=== PATIENT | male | born 1950 | race Caucasian/White ===

== ENCOUNTER 2019-05-11 04:43 | Inpatient (IN) | payer MEDICARE, BC ==
[2019-05-11 05:13] LABS: #Eosinphils 0.2 thou/uL (0.0-0.7); #Lymphocytes 2.3 thou/uL (1.20-3.40); #Monocytes 0.6 thou/uL (0.11-0.59); #Neutrophils 3.4 thou/uL (1.40-6.50); %Basophils 0.7 % (0.0-1.0); %Eosinophils 2.5 % (0.0-10.0); %Lymphocytes 35.4 % (21.0-51.0); %Monocytes 8.5 % (0.0-10.0); %Neutrophils 52.9 % (42.0-75.0); Hemoglobin 16.5 g/dL (14.0-18.0); Mean Corpuscular HGB CONC 33.8 g/dL (32.0-36.0); Mean Corpuscular Hemoglobin 29.9 pg (27.0-31.0); Mean Corpuscular Volume 88.5 fL (78.0-98.0); Mean Platelet Volume 7.3 fL (7.4-10.4); Platelet Count 166 thou/uL (130-400); RBC Distribution Width 12.7 % (11.5-14.5); White Blood Cell (WBC) Count 6.5 thou/uL (4.8-10.8)
[2019-05-11 05:18] LABS: INR-International Normal Ratio 0.9; PTT 32.6 SEC (22.9-36.1); Prothrombin Time 12.6 SEC (12.0-14.7)
[2019-05-11 05:22] LABS: ALT (SGPT) 22 U/L (8-55); AST (SGOT) 22 U/L (5-34); Albumin 4.2 g/dL (3.4-4.8); Alkaline Phosphatase 44 U/L (40-110); Anion Gap 16 mmol/L (10-20); BUN (Urea Nitrogen) 20 mg/dL (8.4-25.7); Bilirubin, Total 0.9 mg/dL (0.2-1.2); CK (CPK) 134 U/L (30-200); Calc. Creatinine Clearance 0 mL/min (70-130); Calcium 9.4 mg/dL (7.8-10.44); Carbon Dioxide 22 mmol/L (23-31); Chloride 105 mmol/L (98-107); Estimated GFR-MDRD 69; Globulin 2.4 g/dL (2.4-3.5); Glucose 125 mg/dL (80-115); Lipase 23 U/L (8-78); Potassium 4.2 mmol/L (3.5-5.1); Protein, Total 6.6 g/dL (5.8-8.1); Sodium 139 mmol/L (136-145)
[2019-05-11 06:18] LABS: CKMB 13.7 ng/mL (0-6.6)
[2019-05-11] MEDS ORDERED: Albumin 5% 0 ML ONE (06:21)
[2019-05-11] MEDS ORDERED: Heparin 10,000 UNITS/1 ML VIAL 30,000 UNITS in Sodium Chloride 0.9% 1,000 ML FS SCH (06:30)
[2019-05-11] MEDS ORDERED: Dexmedetomidine 200 MCG/2 ML VIAL ONE (06:44)
[2019-05-11] MEDS ORDERED: Vecuronium 10 MG VIAL ONE ×2 (06:44→10:21)
[2019-05-11] MEDS ORDERED: Midazolam HCl 5 mg/5 ml Vial ONE (06:44)
[2019-05-11] MEDS ORDERED: Fentanyl 250 MCG/5 ML VIAL ONE (06:44)
--- NOTE | 2019-05-11 08:10 | RAD ---
Chest AP view INDICATION: STEMI alert; chest pain COMPARISON: None FINDINGS: Lungs:The lungs are clear Cardiac silhouette:There is mild cardiomegaly. There is a 6 cm partially circumscribed oval masslike prominence near the region of the descending thoracic aorta suspicious for aneurysmal dilatation of the descending thoracic aorta or left main pulmonary artery. Pulmonary vasculature:Normal Pleural spaces:No pleural effusion or pneumothorax is demonstrated. Upper abdomen:No abnormality seen. Osseous structures: No acute osseous abnormality. Additional findings:None. IMPRESSION: 1. A 6 cm masslike prominence seen in the left superhilar region. Differential considerations include an aneurysmal dilatation of the descending thoracic aorta, left main pulmonary artery or a middle mediastinal mass or lymphadenopathy. Recommend consideration for a CTA of the thorax utilizing IV con trast for additional characterization. 2. Findings called to Dr. Campos at 8:00 AM on May 11, 2019.
[2019-05-11] MEDS ORDERED: Insulin Regular 300 UNITS/3 ML VIAL ONE (08:41)
[2019-05-11] MEDS ORDERED: Glycopyrrolate 0.2 MG/ML 5 ML SYRINGE ONE (10:21)
[2019-05-11] MEDS ORDERED: PROPOFOL 200 MG/20 ML VIAL ONE (10:21)
[2019-05-11] MEDS ORDERED: Lidocaine 1% PF 5 ML VIAL ONE (10:21)
[2019-05-11] MEDS ORDERED: Ondansetron PF 4 MG/2 ML Vial ONE (10:21)
--- NOTE | 2019-05-11 10:48 | HP ---
REASON FOR ADMISSION: Acute inferior myocardial infarction. HISTORY OF PRESENT ILLNESS: Mr. Rickey Coley is a 69-year-old gentleman. He started having chest pain yesterday, retrosternal. It would come and go and lasted for about 15 minutes at a time. Early this morning, the pain worsened, and he went to an [facility] freestanding emergency room. The initial EKG was suspicious, but not diagnostic of an inferior MO with less than a millimeter ST elevation in two leads in the inferior wall. He was sent urgently to the [facility]. The EKG on arrival here did show some additional ST elevation, and a STEMI alert was called. The patient had been otherwise doing well. He was on a beta schuyler and an MICHAEL inhibitor for blood pressure. Also taking aspirin regularly. No recent history of smoking, stopped in the . No alcohol or tobacco abuse. No drug abuse. ALLERGIES: NONE KNOWN AND NOT ALLERGIC TO IODINE. SOCIAL HISTORY: As outlined above. He is . REVIEW OF SYSTEMS: CONSTITUTIONAL: He otherwise has been relatively healthy. VISION: No changes. HEARING: No changes. PULMONARY: No cough or wheezing. GASTROINTESTINAL: No nausea, vomiting, or diarrhea. SKIN: No rashes. NEUROLOGIC: No unilateral weakness or numbness. PSYCHIATRIC: No unusual depression or anxiety. CARDIAC: As above. PHYSICAL EXAMINATION: GENERAL: It was a relatively healthy-appearing 69-year-old gentleman, continuing with chest pain. He said it was variable. Sometimes it was 1 or 2/10, sometimes it was up to 7/10. It seemed to be coming and going. Initially in the emergency room, it was relatively mild. VITAL SIGNS: The blood pressure was high. Please see the nurse's notes and the emergency room notes. In the [facility] ER, the systolic was to 190, it is much lower at the [place] [facility]. Please see the nurses notes and documentation of vital signs. Pulse was in the 60s. HEENT: Eyes, sclerae nonicteric. Mouth, mucous membranes moist. NECK: Supple. No lymphadenopathy. LUNGS: Clear. CARDIAC: Normal S1, normal S2. There is no murmur, rub, or gallop. ABDOMEN: Soft and nontender. No hepatosplenomegaly. EXTREMITIES: Warm and dry. No clubbing or cyanosis. No edema. Good peripheral pulses. DIAGNOSTIC DATA: EKG as outlined above. The troponin level came back later at 0.254. The hospital course so far, after informed consent was obtained, we discussed the risk of stroke, heart attack, iodine allergy, loss of blood supply to leg or kidney, emergency bypass surgery, discussed need that the indication for proceeding to the medical laboratory technician is an acute ST-elevation MO acute and aggressive therapy in the medical laboratory technician as opposed to noninterventional therapy. He understood and wished to proceed. In the medical laboratory technician, we found that he had severe 3-vessel coronary artery disease, recently occluded distal right coronary artery, which was successfully ballooned, and after restoring of flow, he has been sent to the surgical team for urgent coronary artery bypass grafting. CONCLUSION: 1. Acute inferior myocardial infarction, treated with balloon angioplasty to restore blood flow. 2. Severe three-vessel coronary artery disease. 3. Ejection fraction 40%. 4. Hypertension in the past. Job ID: [id number]
[2019-05-11] MEDS ORDERED: Iopamidol 370 76% 100 ML VIAL ONE (10:52)
[2019-05-11] MEDS ORDERED: Iopamidol 370 76% 50 ML VIAL FS ONE (10:52)
[2019-05-11] MEDS ORDERED: Lidocaine 2% PF 5 ML VIAL ONE (11:26)
[2019-05-11] MEDS ORDERED: Magnesium Sulfate 1 GM/2 ML VIAL ONE (11:26)
[2019-05-11] MEDS ORDERED: Aminocaproic Acid 5 GM/20 ML VIAL ONE (11:26)
[2019-05-11] MEDS ORDERED: Heparin 5,000 UNITS/ML VIAL ONE (11:26)
[2019-05-11] MEDS ORDERED: Nitroglycerin 50 MG/250 ML BOT ONE (11:26)
[2019-05-11] MEDS ORDERED: Protamine Sulfate 250 MG/25 ML VIAL ONE (11:26)
[2019-05-11] MEDS ORDERED: Sodium Bicarb 50 MEQ/50 ML Abboject 8.4% SYRINGE ONE (11:26)
[2019-05-11] MEDS ORDERED: Thrombin 5000 UNITS/5 ML VIAL ONE (11:26)
[2019-05-11] MEDS ORDERED: Cardioplegic Soln 1,000 ML BAG ONE (11:26)
[2019-05-11] MEDS ORDERED: Calcium Chloride 1 GM/10 ML Abboject SYRINGE ONE (11:26)
[2019-05-11] MEDS ORDERED: Heparin 30,000 units/30 ml VIAL ONE (11:26)
[2019-05-11] MEDS ORDERED: Papaverine 60 MG/2 ML VIAL ONE (11:26)
[2019-05-11] MEDS ORDERED: Potassium Chloride 60 MEQ/30 ML VIAL ONE (11:26)
[2019-05-11] MEDS ORDERED: Albumin 5% 250 ML ONE ×2 (11:45→13:39)
[2019-05-11] MEDS ORDERED: Nitroglycerin 50 MG/250 ML BOT 250 ML ONE (11:50)
[2019-05-11 12:10] VITALS: BMI 28.2
[2019-05-11] MEDS ORDERED: hydrALAZINE 20 MG/ML VIAL SLOW IVP PRN (12:11)
[2019-05-11] MEDS ORDERED: Hetastarch 6% 500 ML 500 ML IVPB PRN (12:11)
[2019-05-11] MEDS ORDERED: Acetaminophen 325 MG TAB PO PRN (12:11)
[2019-05-11] MEDS ORDERED: Potassium Chloride 20 MEQ/100 ML PREMIX BAG IVPB PRN (12:11)
[2019-05-11] MEDS ORDERED: Post-Op Insulin Drip Protocol IVPB ONE (12:11)
[2019-05-11] MEDS ORDERED: Guaifenesin DM 100-10/5 ML UDCUP PO PRN (12:11)
[2019-05-11] MEDS ORDERED: Promethazine HCl 25 MG/ML VIAL IM PRN (12:11)
[2019-05-11] MEDS ORDERED: Bisacodyl 10 MG SUPP PR PRN (12:11)
[2019-05-11] MEDS ORDERED: DOPamine 400 MG/D5W 250 ML 250 ML IVPB PRN (12:11)
[2019-05-11] MEDS ORDERED: Mag-Al 1200 mg/1200 mg/30 ML UDCUP PO PRN (12:11)
[2019-05-11] MEDS ORDERED: Morphine 2 MG/ML SYRINGE SLOW IVP PRN (12:11)
[2019-05-11] MEDS ORDERED: niCARdipine 25 MG in Sodium Chloride 0.9% 250 ML 250 ML IVPB PRN (12:11)
[2019-05-11] MEDS ORDERED: Norepinephrine 8 MG/0.9% NS 250 ML IVPB PRN (12:11)
[2019-05-11] MEDS ORDERED: Bisacodyl 5 MG TAB PO PRN (12:11)
[2019-05-11] MEDS ORDERED: Nitroglycerin 50 MG/250 ML BOT 250 ML IVPB PRN (12:11)
[2019-05-11] MEDS ORDERED: HYDROcodone/Acetaminophen 5/325 mg Tablet PO PRN (12:11)
[2019-05-11] MEDS ORDERED: Magnesium 2 GM/50 ML 2 GM in Premix Bag 1 BAG IVPB SCH (12:15)
--- NOTE | 2019-05-11 12:20 | RAD ---
Chest one view HISTORY: Heart surgery. COMPARISON: 05/11/2019. Earlier exam on the same date. FINDINGS: Cardiac silhouette is magnified by projection. Pulmonary vasculature are unremarkable. Medi astinum is midline with new sternotomy wires. Tip of a right subclavian central venous catheter overlies the cavoatrial junction. Rounded masslike density at the left suprahilar level is favored to represent aneurysmal dilatation o f the pulmonary artery. Right hemidiaphragm remains slightly elevated. No evidence of pneumothorax. IMPRESSION: Interval postoperative changes mediastinum. Right subclavian central venous catheter in good radiographic position.
[2019-05-11 12:29] LABS: Hemoglobin 13.3 g/dL (14.0-18.0); Mean Corpuscular HGB CONC 33.7 g/dL (32.0-36.0); Mean Corpuscular Hemoglobin 30.4 pg (27.0-31.0); Mean Corpuscular Volume 90.1 fL (78.0-98.0); Mean Platelet Volume 7.7 fL (7.4-10.4); Platelet Count 136 thou/uL (130-400); RBC Distribution Width 12.7 % (11.5-14.5); Red Blood Cell (RBC) Count 4.37 mill/uL (4.70-6.10); White Blood Cell (WBC) Count 21.3 thou/uL (4.8-10.8)
[2019-05-11] MEDS ORDERED: Insulin Regular 300 UNITS/3 ML VIAL SC PRN (12:31)
[2019-05-11] MEDS ORDERED: Dextrose 50% Abboject 50 ML SYRINGE SLOW IVP PRN (12:31)
[2019-05-11] MEDS ORDERED: HUMULIN R 100 UNITS in Sodium Chloride 0.9% 100 ML IVPB SCH (12:31)
[2019-05-11] MEDS ORDERED: Dextrose 5% in Water 1,000 ML IV PRN (12:31)
[2019-05-11 12:32] LABS: INR-International Normal Ratio 1.3; PTT 31.2 SEC (22.9-36.1)
[2019-05-11 12:42] LABS: Band 16 % (5-11); Lymphocytes 6 % (21-51); MDiff Complete? YES; Metamyelocyte 3 % (0-0); Monocytes 4 % (0-10); Myelocyte 1 % (0-0); Neutrophil 69 % (42-75); Platelet Morphology Comment Appears Adequate; Polychromasia SLIGHT = 2-3 cells (100X) (0-2/hpf); Reactive Lymphocytes 1 % (0-10)
[2019-05-11] MEDS ORDERED: Norepinephrine 8 MG in Dextrose 5% in Water 242 ML IVPB PRN (12:50)
[2019-05-11 12:52] LABS: Anion Gap 11 mmol/L (10-20); BUN (Urea Nitrogen) 14 mg/dL (8.4-25.7); Calc. Creatinine Clearance 128 mL/min (70-130); Carbon Dioxide 22 mmol/L (23-31); Chloride 111 mmol/L (98-107); Estimated GFR-MDRD Greater than 90; Glucose 118 mg/dL (80-115); Potassium 4.2 mmol/L (3.5-5.1); Sodium 140 mmol/L (136-145)
[2019-05-11] MEDS: CEFAZOLIN 2 GM in Premix Bag 1 BAG IVPB SCH ×2 (13:13→21:04)
[2019-05-11] MEDS: Ketorolac Tromethamine 30 MG/ML VIAL IVP SCH ×3 (13:14→23:12)
[2019-05-11] MEDS: Sodium Chloride 0.9% 1,000 ML IV SCH ×2 (13:16→21:13)
[2019-05-11] MEDS: Fentanyl 100 MCG/2 ML VIAL SLOW IVP PRN ×3 (13:36→19:29)
--- NOTE | 2019-05-11 15:06 | OP ---
DATE OF PROCEDURE: 05/11/2019 PREOPERATIVE DIAGNOSES: Coronary artery disease, acute inferior myocardial infarction. PROCEDURE PERFORMED: Coronary artery bypass graft x4, left internal mammary artery to a 2-mm left anterior descending artery with plaque, saphenous vein to 1.25 to 1.5 mm diagonal, to a 2.0 to 2.5 mm ramus just as it became intramyocardial, and to a 1 mm posterior descending artery. PRACTICE ARCHITECT: Seth Nair MD TRANSFUSION: None. DESCRIPTION OF PROCEDURE: After adequate anesthesia had been obtained, the patient was prepped and draped. An incision was made for median sternotomy while Dr. Nair did an endovascular vein harvest of the left greater saphenous vein. After opening the sternum, a left internal mammary artery was harvested without entering the pleura. The patient was heparinized. The mammary divided distally and treated with papaverine. Aorta was cannulated above the pericardial reflection and the right atrium was cannulated and cardiopulmonary bypass was begun. Vessels were inspected for grafting. The cross-clamp was applied and a liter of cold blood cardioplegia was given. The four distal anastomosis were completed. The distal right coronary artery and the posterior lateral branches after the takeoff the PDA were all widely exposed and were all poor quality vessels. Partial occluding clamp was placed and the ramus and the PDA vein grafts were anastomosed to the aortic root. The diagonal vein graft was anastomosed to the side of the ramus graft about 2 cm from the aortic root. Following this, the patient was weaned from cardiopulmonary bypass. Cannula was removed and protamine was given systemically. The aortic cannulation site required a vein pledgetted Prolene suture for hemostasis. Obtaining good hemostasis, two mediastinal drains were placed and the sternum was then reapproximated with #7 interrupted wire using vancomycin paste on the sternal edges, platelet rich blood and platelet poor plasma. Subcutaneous tissue and skin were closed in layers and the patient was to be taken to the ICU in guarded condition. Job ID: [id number]
[2019-05-11 18:15] LABS: Hemoglobin 13.9 g/dL (14.0-18.0)
[2019-05-11 18:44] LABS: Potassium 4.2 mmol/L (3.5-5.1)
[2019-05-11] MEDS: Simvastatin 40 MG TAB PO SCH (21:04)
[2019-05-11] MEDS: Famotidine/PF 20 mg/2ml Vial SLOW IVP SCH (21:04)
[2019-05-11] MEDS: HYDROcodone/Acetaminophen 5/325 mg Tablet PO PRN (21:05)
[2019-05-11] MEDS: Ondansetron PF 4 MG/2 ML Vial IVP PRN (21:13)
[2019-05-12] MEDS: Fentanyl 100 MCG/2 ML VIAL SLOW IVP PRN ×2 (00:50→10:02)
[2019-05-12] MEDS: HYDROcodone/Acetaminophen 5/325 mg Tablet PO PRN ×2 (04:00→20:15)
[2019-05-12 04:20] LABS: #Monocytes 1.4 thou/uL (0.11-0.59); #Neutrophils 12.5 thou/uL (1.40-6.50); %Eosinophils 0.2 % (0.0-10.0); %Lymphocytes 6.8 % (21.0-51.0); %Monocytes 9.6 % (0.0-10.0); %Neutrophils 83.4 % (42.0-75.0); Hemoglobin 12.3 g/dL (14.0-18.0); Mean Corpuscular Hemoglobin 30.5 pg (27.0-31.0); Mean Corpuscular Volume 89.9 fL (78.0-98.0); Mean Platelet Volume 7.4 fL (7.4-10.4); Platelet Count 139 thou/uL (130-400); RBC Distribution Width 12.9 % (11.5-14.5); Red Blood Cell (RBC) Count 4.03 mill/uL (4.70-6.10)
[2019-05-12 04:38] LABS: Anion Gap 11 mmol/L (10-20); BUN (Urea Nitrogen) 14 mg/dL (8.4-25.7); Calc. Creatinine Clearance 121 mL/min (70-130); Calcium 7.5 mg/dL (7.8-10.44); Carbon Dioxide 21 mmol/L (23-31); Chloride 110 mmol/L (98-107); Estimated GFR-MDRD Greater than 90; Glucose 138 mg/dL (80-115); Potassium 4.3 mmol/L (3.5-5.1); Sodium 138 mmol/L (136-145)
[2019-05-12] MEDS: Ketorolac Tromethamine 30 MG/ML VIAL IVP SCH ×3 (05:32→17:46)
[2019-05-12] MEDS: CEFAZOLIN 2 GM in Premix Bag 1 BAG IVPB SCH (05:33)
[2019-05-12] MEDS: Famotidine/PF 20 mg/2ml Vial SLOW IVP SCH ×2 (08:22→20:15)
[2019-05-12] MEDS ORDERED: Aspirin 325 MG TAB PO SCH (09:00)
--- NOTE | 2019-05-12 09:01 | RAD ---
CHEST ONE VIEW: INDICATIONS: History of status post open heart surgery. COMPARISON: Prior exam dated 05/11/2019 at 11:26 a.m. FINDINGS: Right subclavian central venous catheter, midline sternotomy changes are stable. Rounded mass-like op acity seen within the left suprahilar region is stable. There are areas of subsegmental volume loss i nvolving both lower lobes. No pneumothorax is evident. No acute osseous abnormality is evident. IMPRESSION: 1. Bibasilar atelectasis is likely related to depth of inspiration. 2. Persistent mass-like opacity of the left suprahilar region. 3. Stable right subclavian central venous catheter and post coronary artery bypass grafting change. POS: CET
[2019-05-12 10:28] LABS: Troponin I 7.473 ng/mL (< 0.028)
--- NOTE | 2019-05-12 13:45 | PRG ---
DATE OF SERVICE: 05/12/2019 SUBJECTIVE: Mr. Coley is doing great. The arterial sheath is out, feeling well. He is going to get up out of bed soon. OBJECTIVE: VITAL SIGNS: Blood pressure 106/53, pulse 80 and regular. LUNGS: Clear. CARDIAC: Normal S1, normal S2. ASSESSMENT: Status post myocardial infarction and an emergency balloon angioplasty and the bypass surgery. PLAN: Continue the current medical regimen. We will start Plavix one a day tomorrow. Job ID: [id number]
[2019-05-12] MEDS: Ondansetron PF 4 MG/2 ML Vial IVP PRN (13:52)
[2019-05-12] MEDS: Simvastatin 40 MG TAB PO SCH (20:15)
[2019-05-13] MEDS: Ketorolac Tromethamine 30 MG/ML VIAL IVP SCH ×2 (00:05→05:43)
[2019-05-13 05:17] LABS: Anion Gap 7 mmol/L (10-20); BUN (Urea Nitrogen) 16 mg/dL (8.4-25.7); Calc. Creatinine Clearance 117 mL/min (70-130); Calcium 8.1 mg/dL (7.8-10.44); Carbon Dioxide 28 mmol/L (23-31); Chloride 106 mmol/L (98-107); Estimated GFR-MDRD 90; Glucose 111 mg/dL (80-115); Potassium 4.3 mmol/L (3.5-5.1); Sodium 137 mmol/L (136-145)
[2019-05-13 05:41] LABS: #Eosinphils 0.1 thou/uL (0.0-0.7); #Lymphocytes 1.7 thou/uL (1.20-3.40); #Monocytes 1.1 thou/uL (0.11-0.59); #Neutrophils 8.6 thou/uL (1.40-6.50); %Basophils 0.2 % (0.0-1.0); %Eosinophils 0.8 % (0.0-10.0); %Lymphocytes 14.6 % (21.0-51.0); %Monocytes 9.1 % (0.0-10.0); %Neutrophils 75.3 % (42.0-75.0); Hemoglobin 11.5 g/dL (14.0-18.0); Mean Corpuscular HGB CONC 33.4 g/dL (32.0-36.0); Mean Corpuscular Hemoglobin 30.9 pg (27.0-31.0); Mean Corpuscular Volume 92.4 fL (78.0-98.0); Mean Platelet Volume 7.4 fL (7.4-10.4); Platelet Count 112 thou/uL (130-400); Platelet Morphology Comment Appears Decreased; RBC Distribution Width 12.9 % (11.5-14.5); Red Blood Cell (RBC) Count 3.71 mill/uL (4.70-6.10); White Blood Cell (WBC) Count 11.5 thou/uL (4.8-10.8)
[2019-05-13] MEDS ORDERED: Bisacodyl 10 MG SUPP PR PRN (06:14)
[2019-05-13] MEDS ORDERED: Mineral Oil ENEMA PR PRN (06:14)
[2019-05-13] MEDS ORDERED: Ondansetron PF 4 MG/2 ML Vial IVP PRN (06:14)
[2019-05-13] MEDS ORDERED: Bisacodyl 5 MG TAB PO PRN (06:14)
[2019-05-13] MEDS ORDERED: Mag-Al 1200 mg/1200 mg/30 ML UDCUP PO PRN (06:14)
[2019-05-13] MEDS ORDERED: HYDROcodone/Acetaminophen 5/325 mg Tablet PO PRN (06:14)
[2019-05-13] MEDS ORDERED: Guaifenesin DM 100-10/5 ML UDCUP PO PRN (06:14)
[2019-05-13] MEDS ORDERED: Acetaminophen 325 MG TAB PO PRN (06:14)
[2019-05-13] MEDS ORDERED: Nitroglycerin 0.4 MG TAB (25 Tab Bottle) SL PRN (06:14)
[2019-05-13] MEDS ORDERED: Fentanyl 100 MCG/2 ML VIAL SLOW IVP PRN ×2 (06:14)
[2019-05-13] MEDS: Clopidogrel Bisulfate 75 MG TAB PO SCH (07:43)
[2019-05-13] MEDS: Furosemide 40 MG TAB PO SCH (07:43)
[2019-05-13] MEDS: Potassium Chloride 10 MEQ TAB PO SCH (07:43)
[2019-05-13] MEDS: Famotidine 20 MG TAB PO SCH ×2 (07:43→20:31)
[2019-05-13] MEDS: Polyethylene Glycol 3350 17 GM Packet PO SCH (07:44)
--- NOTE | 2019-05-13 07:50 | RAD ---
Frontal radiograph chest: 05/13/2019 COMPARISON: 05/12/2019 HISTORY: Evaluate chest following open heart surgery FINDINGS: There is a rounded soft tissue density in the AP window region suggesting a dilated pulmona ry artery on the basis of pulmonary arterial hypertension. However, a soft tissue mass in the left hilar region cannot be excluded. There is a right-sided vascular catheter with distal tip overlying t he region of the cavoatrial junction. Midline sternotomy wires are present. Mediastinal drainage catheters suspected. There is no pneumothorax, pleural fluid, focal consolidation, or alveolar edema. IMPRESSION: Postoperative changes as detailed above. Stable rounded mass density in the left hilar re gion for which follow-up CT advised.
[2019-05-13] MEDS ORDERED: Aspirin 81 mg Enteric Coated Tablet PO SCH ×2 (09:00)
[2019-05-13] MEDS: Aspirin 81 mg Enteric Coated Tablet PO SCH (10:40)
[2019-05-13] MEDS: HYDROcodone/Acetaminophen 5/325 mg Tablet PO PRN ×2 (17:00→23:06)
[2019-05-13] MEDS ORDERED: Simvastatin 40 MG TAB PO SCH (21:00)
[2019-05-14] MEDS: Potassium Chloride 10 MEQ TAB PO SCH (07:56)
[2019-05-14] MEDS: Famotidine 20 MG TAB PO SCH ×2 (07:56→20:37)
[2019-05-14] MEDS: Clopidogrel Bisulfate 75 MG TAB PO SCH (07:56)
[2019-05-14] MEDS: Polyethylene Glycol 3350 17 GM Packet PO SCH (07:57)
[2019-05-14] MEDS: Furosemide 40 MG TAB PO SCH (07:57)
[2019-05-14] MEDS: Aspirin 81 mg Enteric Coated Tablet PO SCH (07:57)
--- NOTE | 2019-05-14 09:02 | PRG ---
DATE OF SERVICE: 05/14/2019 SUBJECTIVE: Mr. Coley is sitting up in the chair. He says he feels very tired waking up slowly. OBJECTIVE: VITAL SIGNS: Blood pressure 115/64, pulse is 108 and it is sinus on the monitor. LUNGS: Clear. CARDIAC: Normal S1, normal S2. ABDOMEN: Soft, nontender. EXTREMITIES: No edema. ASSESSMENT: 1. Status post [id number] myocardial infarction. 2. Bypass surgery for three-vessel coronary artery disease. 3. Hypercholesterolemia. Most recent cholesterol in the computer; LDL 112, presumably was on statins at that time from what I can tell. PLAN: 1. Resume beta schuyler, metoprolol succinate 50 mg a day. 2. Aspirin. 3. Clopidogrel. 4. Crestor 40 mg a day. 5. Increase activity. Job ID: [id number]
[2019-05-14] MEDS: Rosuvastatin 20 MG TAB PO SCH (20:37)
[2019-05-15] MEDS: Potassium Chloride 10 MEQ TAB PO SCH (09:02)
[2019-05-15] MEDS: Polyethylene Glycol 3350 17 GM Packet PO SCH (09:02)
[2019-05-15] MEDS: Aspirin 81 mg Enteric Coated Tablet PO SCH (09:02)
[2019-05-15] MEDS: Famotidine 20 MG TAB PO SCH ×2 (09:03→21:08)
[2019-05-15] MEDS: Furosemide 40 MG TAB PO SCH (09:03)
[2019-05-15] MEDS: Clopidogrel Bisulfate 75 MG TAB PO SCH (09:03)
--- NOTE | 2019-05-15 10:01 | PRG ---
DATE OF SERVICE: 05/15/2019 SUBJECTIVE: Mr. Coley is doing well. He is actually just getting ready to walk in the halls. When I examine him, he is just getting ready to walk in the [place] now. He is actually doing that. He is not having chest pain or pressure. There is minimal drainage from the incision. OBJECTIVE: VITAL SIGNS: Blood pressure 123/75, pulse 80 and it is regular. LUNGS: Clear. CARDIAC: Normal S1 and normal S2. ABDOMEN: Soft and nontender. EXTREMITIES: There is no edema. ASSESSMENT: 1. Status post [id number] infarction. 2. Multivessel coronary artery disease status post bypass surgery. 3. Hypertension. 4. Hypercholesterolemia. PLAN: He is doing well on all his current medical regimen, probably home soon. He will stay on aspirin and Plavix for probably 1 year. The right coronary was a suboptimal vessel for bypass per Dr. Brewer's notes and the posterior descending artery had to be done as the only target. Job ID: [id number]
[2019-05-15] MEDS: Rosuvastatin 20 MG TAB PO SCH (21:08)
[2019-05-16 07:47] VITALS: BP 122/68; TEMP 99
[2019-05-16] MEDS: Aspirin 81 mg Enteric Coated Tablet PO SCH (08:21)
[2019-05-16] MEDS: Famotidine 20 MG TAB PO SCH (08:21)
[2019-05-16] MEDS: Potassium Chloride 10 MEQ TAB PO SCH (08:21)
[2019-05-16] MEDS: Clopidogrel Bisulfate 75 MG TAB PO SCH (08:21)
[2019-05-16] MEDS: Polyethylene Glycol 3350 17 GM Packet PO SCH (08:21)
[2019-05-16] MEDS: Furosemide 40 MG TAB PO SCH (08:21)
[2019-05-16] MEDS ORDERED: Benzonatate 100 MG CAP PO SCH (09:00)
--- NOTE | 2019-05-18 12:00 | DIS ---
DATE OF ADMISSION: 05/11/2019 DATE OF DISCHARGE: 05/16/2019 The patient was admitted early Saturday morning with an acute inferior NM and was taken to the supervisor cytogenetic laboratory by Dr. Campos. He had a distal right occlusion and he opened that with a 2-mm balloon due to three-vessel disease. He was taken emergently to the operating room, where he underwent coronary artery bypass grafting to the LAD, diagonal, ramus, and a very small right PDA. The posterolateral system was also felt to be too small to graft. He received no perioperative transfusions. Troponin measured at 7.5. He did well in the hospital developing dry tickling cough, which did result in some serous drainage from his upper sternum related to his coughing. His weight was 201 compared to 207 or 208 on admission. Sternum is stable at this time. He has no edema. He will be discharged home to follow up with me in 2 weeks. Discharge medicines will include his home medicine of metoprolol 50 b.i.d., allopurinol, and aspirin. His lisinopril has been held. His fish oil has been stopped and he will be started on Crestor 20, Tessalon Perles 200 t.i.d. for 1 week, and Plavix 75 a day due to his very small right coronary system that was suboptimal for grafting. Job ID: [id number]
== END 2019-05-16 11:20 | disposition home or self-care (01) | DRG 232 ==
LOC: ERS 04:43 → CCU 05:09 → CCL 05:43 → CCU 05:47 → 2NO 05-13 14:33
PROVIDERS: ADMIT Internal Medicine Cardiovascular Disease; ATTEND Internal Medicine Cardiovascular Disease
PROC: 02100Z9 Bypass Coronary Artery, One Artery from Left Internal Mammary, Open Approach (ICD-10-PCS; principal; 2019-05-11)
PROC: 02703ZZ Dilation of Coronary Artery, One Artery, Percutaneous Approach (ICD-10-PCS; 2019-05-11)
PROC: 021209W Bypass Coronary Artery, Three Arteries from Aorta with Autologous Venous Tissue, Open Approach (ICD-10-PCS; 2019-05-11)
PROC: 06BQ4ZZ Excision of Left Saphenous Vein, Percutaneous Endoscopic Approach (ICD-10-PCS; 2019-05-11)
PROC: 5A1221Z Performance of Cardiac Output, Continuous (ICD-10-PCS; 2019-05-11)
PROC: 4A023N7 Measurement of Cardiac Sampling and Pressure, Left Heart, Percutaneous Approach (ICD-10-PCS; 2019-05-11)
PROC: B2111ZZ Fluoroscopy of Multiple Coronary Arteries using Low Osmolar Contrast (ICD-10-PCS; 2019-05-11)
PROC: B2151ZZ Fluoroscopy of Left Heart using Low Osmolar Contrast (ICD-10-PCS; 2019-05-11)
DX: I21.19 ST elevation (STEMI) myocardial infarction involving other coronary artery of inferior wall (principal); I10 Essential (primary) hypertension; I25.10 Atherosclerotic heart disease of native coronary artery without angina pectoris; E78.00 Pure hypercholesterolemia, unspecified; Z87.891 Personal history of nicotine dependence; Z91.041 Radiographic dye allergy status
CPT/HCPCS: 36415; 36416; 36430; 71045; 76942; 80048; 80053; 82550; 82553; 83036; 83690; 84484; 85025; 85347; 85610; 85730; 86850; 86900; 86901; 92920; 93005; 93010; 93458; 93798; 94150; 94760; 99152; 99153; C1769; C1887; J0690; J1644; J1815; J1885; J2001; J2250; J2405; J2440; J2704; J2720; J3010; J3370; J3475; J3480; J3490; J7050; J7070; P9045; Q9967; S0017; S0028

== ENCOUNTER 2022-01-18 19:45 | Inpatient (IN) | payer MEDICARE, BC ==
[2022-01-18] MEDS ORDERED: Nitroglycerin 2% Ointment 1 INCH/1 GM Packet ONE (20:03)
[2022-01-18] MEDS ORDERED: Aspirin Chewable 81 MG TAB ONE (20:03)
[2022-01-18 20:14] LABS: #Eosinphils 0.2 thou/uL (0.0-0.7); #Lymphocytes 2.1 thou/uL (1.20-3.40); #Monocytes 0.5 thou/uL (0.11-0.59); #Neutrophils 2.5 thou/uL (1.40-6.50); %Basophils 0.7 % (0.0-1.0); %Eosinophils 3.6 % (0.0-10.0); %Lymphocytes 39.6 % (21.0-51.0); %Monocytes 9.6 % (0.0-10.0); %Neutrophils 46.5 % (42.0-75.0); Hemoglobin 16.2 g/dL (14.0-18.0); Mean Corpuscular HGB CONC 33.9 g/dL (32.0-36.0); Mean Corpuscular Hemoglobin 30.3 pg (27.0-31.0); Mean Corpuscular Volume 89.4 fL (78.0-98.0); Mean Platelet Volume 7.7 fL (7.4-10.4); Platelet Count 146 thou/uL (130-400); RBC Distribution Width 13.5 % (11.5-14.5); Red Blood Cell (RBC) Count 5.34 mill/uL (4.70-6.10); White Blood Cell (WBC) Count 5.4 thou/uL (4.8-10.8)
[2022-01-18 20:35] LABS: ALT (SGPT) 17 U/L (8-55); AST (SGOT) 18 U/L (5-34); Albumin 4.2 g/dL (3.4-4.8); Alkaline Phosphatase 36 U/L (40-110); Anion Gap 15 mmol/L (10-20); BUN (Urea Nitrogen) 15 mg/dL (8.4-25.7); Bilirubin, Total 0.8 mg/dL (0.2-1.2); CK (CPK) 85 U/L (30-200); Calc. Creatinine Clearance 0 mL/min (70-130); Calcium 9.1 mg/dL (7.8-10.44); Carbon Dioxide 23 mmol/L (23-31); Chloride 107 mmol/L (98-107); Estimated GFR 65; Globulin 2.5 g/dL (2.4-3.5); Glucose 123 mg/dL (83-110); Lipase 44 U/L (8-78); Potassium 4.1 mmol/L (3.5-5.1); Protein, Total 6.7 g/dL (5.8-8.1); Sodium 141 mmol/L (136-145)
[2022-01-18 21:11] LABS: Bilirubin Negative (Negative); Blood, Urine Negative (Negative); Clarity Clear (Clear); Glucose, Urine (Dipstick) Normal (Negative); Ketone, Urine Negative (Negative); Leukocyte Negative Leu/uL (Negative); Nitrite Negative (Negative); Protein, Urine (Dipstick) Negative (Neg-Trace); Specific Gravity, Urine 1.006 (1.002-1.036); Urobilinogen Normal mg/dL (Less than 2); pH, Urine 6.5 (5.0-9.0)
[2022-01-19 00:39] LABS: Troponin I Less than 0.010 ng/mL (< 0.028)
[2022-01-19 00:46] VITALS: BMI 30.8
[2022-01-19] MEDS ORDERED: Ondansetron PF 4 MG/2 ML Vial IVP PRN (00:59)
[2022-01-19] MEDS ORDERED: Acetaminophen 650 MG Suppository PR PRN (00:59)
[2022-01-19] MEDS ORDERED: Ondansetron ODT 4 MG TAB PO PRN (00:59)
[2022-01-19] MEDS: Acetaminophen 325 MG TAB PO PRN ×2 (01:24→21:05)
[2022-01-19 01:51] LABS: SARS-CoV-2 NAA Rapid Test Not Detected (NotDetected)
[2022-01-19 02:34] LABS: Troponin I Less than 0.010 ng/mL (< 0.028)
[2022-01-19] MEDS ORDERED: Nitroglycerin 0.4 MG TAB (25 Tab Bottle) SL PRN (03:43)
[2022-01-19] MEDS ORDERED: Regadenoson 0.4 MG/5 ML SYRINGE ONE (08:25)
[2022-01-19] MEDS: Aspirin 81 mg Enteric Coated Tablet PO SCH (09:06)
[2022-01-19] MEDS ORDERED: Lisinopril 10 MG TAB PO SCH (15:00)
[2022-01-19] MEDS ORDERED: Clopidogrel Bisulfate 300 MG TAB PO SCH (15:00)
[2022-01-19] MEDS ORDERED: Famotidine 20 MG TAB PO SCH (17:15)
[2022-01-19] MEDS: Famotidine 20 MG TAB PO SCH (21:06)
[2022-01-20 05:18] LABS: #Eosinphils 0.2 thou/uL (0.0-0.7); #Monocytes 0.5 thou/uL (0.11-0.59); %Basophils 0.7 % (0.0-1.0); %Eosinophils 3.1 % (0.0-10.0); %Lymphocytes 34.5 % (21.0-51.0); %Neutrophils 52.8 % (42.0-75.0); Hemoglobin 16.8 g/dL (14.0-18.0); Mean Corpuscular Hemoglobin 30.7 pg (27.0-31.0); Mean Corpuscular Volume 90.4 fL (78.0-98.0); Mean Platelet Volume 7.5 fL (7.4-10.4); Platelet Count 134 thou/uL (130-400); RBC Distribution Width 13.6 % (11.5-14.5); Red Blood Cell (RBC) Count 5.48 mill/uL (4.70-6.10); White Blood Cell (WBC) Count 5.6 thou/uL (4.8-10.8)
[2022-01-20 05:39] LABS: Anion Gap 15 mmol/L (10-20); BUN (Urea Nitrogen) 15 mg/dL (8.4-25.7); Calc. Creatinine Clearance 102 mL/min (70-130); Carbon Dioxide 19 mmol/L (23-31); Chloride 109 mmol/L (98-107); Estimated GFR 91; Glucose 91 mg/dL (83-110); Potassium 4.1 mmol/L (3.5-5.1); Sodium 139 mmol/L (136-145)
[2022-01-20 08:55] VITALS: TEMP 97.7
[2022-01-20] MEDS ORDERED: Lisinopril 5 MG TAB PO SCH (09:00)
[2022-01-20] MEDS ORDERED: Clopidogrel Bisulfate 75 MG TAB PO SCH (09:00)
[2022-01-20] MEDS: Aspirin 81 mg Enteric Coated Tablet PO SCH (09:14)
[2022-01-20] MEDS: Famotidine 20 MG TAB PO SCH (09:14)
[2022-01-20 11:54] VITALS: BP 150/81
== END 2022-01-20 11:57 | disposition home or self-care (01) | DRG 313 ==
LOC: ERS 19:45 → 2NO 22:30
PROVIDERS: ADMIT Student in an Organized Health Care Education/Training Program; ATTEND Student in an Organized Health Care Education/Training Program
DX: R07.89 Other chest pain (principal); I28.1 Aneurysm of pulmonary artery; I10 Essential (primary) hypertension; I25.10 Atherosclerotic heart disease of native coronary artery without angina pectoris; E11.9 Type 2 diabetes mellitus without complications; Z20.822 Contact with and (suspected) exposure to COVID-19; E78.00 Pure hypercholesterolemia, unspecified; I25.2 Old myocardial infarction; Z87.891 Personal history of nicotine dependence; Z79.82 Long term (current) use of aspirin; Z95.1 Presence of aortocoronary bypass graft; Z79.899 Other long term (current) drug therapy; Z79.84 Long term (current) use of oral hypoglycemic drugs
CPT/HCPCS: 36415; 36416; 71045; 78452; 80048; 80053; 81003; 82550; 83690; 83880; 84484; 85025; 85379; 93005; 93017; 94760; A9500; J2785; U0002